=== PATIENT | female | born 1935 | race Caucasian/White ===

== ENCOUNTER 2018-11-24 05:52 | Inpatient (IN) | payer MEDICARE ==
--- NOTE | 2018-11-20 13:39 | HP ---
PREOPERATIVE HISTORY AND PHYSICAL: DATE OF ADMISSION: 11/24/18 PHYSICIAN: Dr. Kimberlyn Lincoln.* (DICTATED BY VESNA SILVA) PROCEDURE: Left total hip arthroplasty. HISTORY OF PRESENT ILLNESS: Ms. Maurer is an 83-year-old female with several years of left hip pain that has become worse over the last 6 months. Her pain is in the groin and can be anything from a mild ache to severe throbbing pain. Her pain has progressed to 7/10 and she has difficulty walking 1 block. She has tried conservative treatments such as antiinflammatories, exercise program, cane, rest, ice, and heat without relief and she is seeking surgical intervention with Dr. Lincoln at this time. PAST MEDICAL HISTORY: Osteoarthritis, hypertension, hypothyroidism. She had a DVT in her right lower extremity in the past. PAST SURGICAL HISTORY: Abdominal aortic aneurysm surgery. She denies anesthetic complications with these procedures. CURRENT MEDICATIONS: 1. 5 mg p.o. daily. 2. Levothyroxine sodium 100 mcg once daily. 3. Furosemide 20 mg once daily. 4. Gabapentin 300 mg 3 capsules 3 times daily. 5. Aspirin 81 mg 1 time daily. She will discontinue this 1 week prior to the surgery. ALLERGIES: IBUPROFEN gives her a rash. FAMILY HISTORY: Positive for diabetes, but no heart disease or cancer. SOCIAL HISTORY: She lives with her , who will take care of her postoperatively. She has smoked for the last 30 years and currently consumes 3 cigarettes a day. She denies recreational drug use or alcohol use. REVIEW OF SYSTEMS: Fourteen systems were reviewed with the patient and they are positive for left hip pain, chronic back pain, fatigue, and easy bleeding, but negative for fevers, chills, chest pain with exertion, shortness of breath with exertion, and all other systems are otherwise negative. PHYSICAL EXAMINATION GENERAL: She is a well-developed, well-nourished female seated in exam chair, in no acute distress with appropriate affect. VITAL SIGNS: Height 64 inches, weight 122 pounds. Pulse 77, blood pressure 108 /78. HEENT: Normocephalic, atraumatic. Hearing and vision are grossly intact with extraocular movements intact. NECK: The trachea is midline and symmetrical. CHEST: Lungs are clear to auscultation. No wheezes, rales, or rhonchi appreciated. CARDIO: Regular rate and rhythm. Normal S1, S2. No murmurs, rubs, or gallops noted. ABDOMEN: Nondistended. Bowel sounds present. MUSCULOSKELETAL: Of the left lower extremity, skin is dry and intact without abrasions or open wounds. She flexes the hip to 70 degrees with severe pain. She has no rotation of the hip due to pain and contracture. She has tenderness to palpation in the groin. No distal edema, varicosities, or hyperreflexia. She has 5/5 strength against resistance in 4 planes in the left ankle. Sensation is intact throughout with a 2+ dorsalis pedis pulse. IMAGING: Radiographs performed previously show severe end-stage osteoarthritis of the left hip. There is [id number] contact and obliteration of the joint space with some subchondral sclerosis and extensive cyst formation around the acetabulum. Osteopenia is noted on these films. ASSESSMENT: Acute on chronic left hip pain and osteoarthritis. PLAN: Left total hip replacement with Dr. Lincoln. The patient's questions were answered and she would like to proceed. Dr. Lincoln reviewed the potential risks and complications at today's visit. The patient will follow up postoperatively and pain medication will be dispensed postoperatively. VESNA SILVA [id number]/[facility] #: [id number] MTDNancy
[~2018-11-24 05:52] MED LIST: Buffered Lidocaine 1% SYRIN* 1 ML/SYRINGE INTRADERM ONE
[2018-11-24] MEDS ORDERED: Famotidine IV* 10 MG/ML 2 ML (20 mg) IV ONE (06:00)
[2018-11-24] MEDS ORDERED: Lactated Ringers 1000 ML Bag* 1,000 ML IV SCH ×2 (06:00→11:00)
[2018-11-24] MEDS ORDERED: Acetaminophen TAB* 325 MG PO ONE (06:00)
[2018-11-24] MEDS ORDERED: Acetaminophen TAB* 325 MG ONE (06:14)
[2018-11-24] MEDS ORDERED: Famotidine IV* 10 MG/ML 2 ML (20 mg) ONE (06:14)
[2018-11-24] MEDS ORDERED: Buffered Lidocaine 1% SYRIN* 1 ML/SYRINGE INTRADERM ONE (06:16)
[2018-11-24] MEDS ORDERED: ceFAZolin 2 GM in NS PREMIX(*) 2 GM/100 ML BAG IVPB ONE (06:16)
[2018-11-24] MEDS ORDERED: Tranexamic Acid 1,000 MG in NS 0.9% 50 ML IV ONE (07:00)
[2018-11-24] MEDS ORDERED: Phenylephrine 10 MG/ML VIAL* 1 ML VIAL ONE ×2 (07:10→13:27)
[2018-11-24] MEDS ORDERED: fentaNYL* 50 MCG/ML 2 ML VIAL (100 MCG VIAL) ONE ×3 (07:10→11:07)
[2018-11-24] MEDS ORDERED: Midazolam* 1 MG/ML 10 ML VIAL (10 MG) ONE (07:10)
[2018-11-24] MEDS ORDERED: Ondansetron INJ* 2 MG/ML VIAL ONE (07:10)
[2018-11-24] MEDS ORDERED: Propofol* 10 MG/ML 20 ML BTL ONE (07:10)
[2018-11-24] MEDS ORDERED: Lidocaine 2% PF * 5 ML VIAL ONE (07:10)
[2018-11-24] MEDS ORDERED: Dexamethasone IV* 4 MG/ML 1 ML (4 MG) ONE (07:10)
[2018-11-24] MEDS ORDERED: KETAMINE HCL* 50 MG/ML 10 ML VIAL ONE (07:11)
[2018-11-24] MEDS ORDERED: Ropivacaine 0.2% * 2 MG/ML VIAL ONE (07:15)
[2018-11-24] MEDS ORDERED: ROPIVACAINE 5 MG/ML 30 ML BTL (0.5%) ONE (07:48)
[2018-11-24] MEDS ORDERED: Cisatracurium* 2 MG/ML MDV 5 ML ONE (08:04)
[2018-11-24] MEDS ORDERED: EPHEDrine (Pressors)* 50 MG/ML VIAL ONE (08:21)
[2018-11-24] MEDS ORDERED: DiMENhydriNATE IV* 50 MG/ML VIAL IV PUSH PRN (09:19)
[2018-11-24] MEDS ORDERED: Levalbuterol 0.63MG/3ML NEB* UNIT OF USE INH PRN (09:19)
[2018-11-24] MEDS ORDERED: Naloxone* 0.4 MG/ML 1 ML VIAL IV PRN (09:19)
[2018-11-24] MEDS ORDERED: Polyethylene Glycol 3350* 17 GM PACKET PO PRN (10:25)
[2018-11-24] MEDS ORDERED: Cyclobenzaprine TAB* 10 MG PO PRN (10:25)
[2018-11-24] MEDS ORDERED: Magnesium Hydroxide LIQ* 30 ML UDC PO PRN (10:25)
[2018-11-24] MEDS ORDERED: Temazepam CAP* 15 MG PO PRN (10:25)
[2018-11-24] MEDS ORDERED: oxyCODONE TAB* 5 MG TAB PO PRN (10:25)
[2018-11-24] MEDS ORDERED: Ondansetron INJ* 2 MG/ML VIAL IV PRN (10:25)
[2018-11-24] MEDS ORDERED: diPHENhydraMINE IV* 50 MG/ML 1 ml VIAL (BENADRYL) IV PRN (10:25)
[2018-11-24] MEDS ORDERED: Morphine INJ* 2 MG/ML 1 ML SYRINGE (TWO MG - NEW SYRINGE VERSION) IV PRN (10:25)
[2018-11-24] MEDS ORDERED: diPHENhydraMINE PO* 25 MG PO PRN (10:25)
[2018-11-24] MEDS ORDERED: Ondansetron ODT TAB* 4 MG PO PRN (10:25)
[2018-11-24] MEDS: fentaNYL* 50 MCG/ML 2 ML VIAL (100 MCG VIAL) IV PRN ×3 (11:11→15:25)
--- NOTE | 2018-11-24 13:16 | OP ---
Operative Report - Blank - Operative Report Date of Operation: 11/24/18 Note: RYNE LOPEZ 1935 Date Of Surgery: 11/24/18 Kimberlyn Lincoln MD Cart Attendant: Morenita MALAGON did help throughout the procedure with preparation of the hip, wound retraction, manipulation of the hip, and wound closure. Anesthesiologist: Mili Jordan MD Anesthesia Type: General Preoperative Diagnosis: Left severe degenerative osteoarthritis of the hip Postoperative Diagnosis: As above Procedure Performed: Left Total Hip Arthroplasty with acetabular bone grafting with femoral head autograft Complications: None Specimen: Femoral head and acetabular reamings sent to pathology. Hardware used: This is uncemented Jaime total hip arthroplasty hardware for the femur a accolade II size 6 with 127 neck angle side femoral component, for the acetabulum a size 54E trident II tritanium cluster hole shell, one 15 mm screw, for the insert a size 36Etrident X3 polyethylene insert, and for the femoral head a size 36-2.5 ceramic biolox V40 femoral head. Brief history/Indication: RYNE LOPEZ was known in clinic and had a history of severe left hip pain. She failed conservative treatment with anti- inflammatories, pain pills, intra-articular injections and physical therapy. She elected to undergo left total hip arthroplasty due to continued pain and decreased quality of life. Radiographs showed severe end stage osteoarthritis of the hip with bone on bone contact. Informed consent was obtained from the patient. She understood the risks of surgery included but were not limited to: bleeding, infection, damage to nearby structures, intraoperative fracture, nerve palsy, failure of the hardware, early loosening, stiffness or loss of motion, dislocation, leg length discrepancy, anesthesia complications, stroke, heart attack, blood clot and . She wished to proceed. Intra-Operative findings: Intraoperatively the patient was noted to have severe loss of cartilage of the acetabulum and femoral head. The patient had significant acetabular subchondral bone cysts which were grafted with autograft bone from the femoral head. Description of the Procedure: RYNE LOPEZ was identified in the preanesthesia unit. Her left hip was marked as the correct operative side. Informed consent was signed and placed in the chart. The patient was taken to the operating room and placed under anesthesia without complication. A correa catheter was placed. The patient was placed on the peg board with all bony prominences well padded. The left lower extremity was prepped and draped in the usual sterile fashion. Preoperative time -out was made to correctly identify the patient, side and site. Appropriate intraoperative antibiotics were given within one hour of incision. A standard posterior incision was made and carried sharply down to the lateral fascia. A new 10 blade was used to make an incision in the fascia in line with the skin incision. A charnley retractor was placed. The piriformis and conjoined tendons were identified and elevated off the posterolateral femur using electrocautery. These were tagged with number 5 Ethibond. Next electrocautery was used to make a posterolateral capsular flap and this was tagged with number 5 Ethibonds. The hip was carefully dislocated. Lesser trochanter to the center of the femoral head was measured at 55 mm. The oscillating saw was used to make the femoral neck cut. The femoral head was carefully removed. The femur was retracted anteriorly and the acetabular retractors were placed. Long-handled knife was used to sharply remove any remaining labrum from the acetabular rim. The acetabulum was sequentially reamed up to a size 54. A bleeding subchondral bone bed was obtained. Any subchondral cysts were cleared with a curette and had bone graft from the femoral head placed to fill them. A trial liner was placed and had excellent fit and stability. A 54E cup with a 15 mm screw was placed and had excellent stability with appropriate anteversion and abduction angle. A size 36E polyethylene liner was impacted into the acetabular shell. The liner was checked for stability and was stable. Next attention was turned to preparation of the femoral canal. A canal finder was used to enter the proximal femur. The femoral canal was sequentially broached up to a size 6 femoral broach trial. A trial neck and 36 - 2.5 trial femoral head was chosen. Lesser trochanter to center of the femoral head measurement was satisfactory. The hip was reduced and taken through a range of motion. The hip was stable in all positions with good soft tissue tension and appropriate leg lengths. The hip was dislocated and all trials were removed. The final implant chosen was a accolade size 6 with 127 neck angle. This stem was impacted into the femoral canal without difficulty. The stem was stable with appropriate anteversion. The femoral head chosen was a 36 - 2.5 ceramic head. The head was impacted onto the femoral neck without difficulty. The final lesser trochanter to center of the femoral head measurement was satisfactory. The hip was reduced and taken through a range of motion. The hip was stable in all positions with good soft tissue tension and appropriate leg lengths. The hip was copiously irrigated with sterile saline. The previously tagged capsule and tendons were repaired to the posterolateral femur through two trochanteric drill holes. The lateral fascia layer was closed using number 1 vicryls. The rest of the incision was closed in a layered fashion using 0 and 2-0 vicryls. The skin was closed using 3-0 monocryl suture and Dermabond. Sterile adaptic, 4x4s and paper tape was used to cover the incision. The patients anesthesia was reversed without difficulty. She was taken to the PACU in stable condition. Intended weight-bearing will be as tolerated with posterior hip precautions.
[2018-11-24] MEDS: Phenylephrine 10 MG/ML VIAL* 50 MG in NS 0.9% 250 ML* 245 ML IV PRN ×2 (13:32→14:16)
[2018-11-24] MEDS ORDERED: Acetaminophen TAB* 325 MG PO SCH (14:00)
[2018-11-24 14:56] LABS: ABS Basophils 0.1 10^3/ul (0-0.2); ABS Lymphocytes 0.5 10^3/ul (1.0-4.8); ABS Monocytes 0.2 10^3/ul (0-0.8); ABS Neutrophils 13.5 10^3/ul (1.5-7.7); Eosinophil % 0.1 %; Hematocrit 27 % (35-47); Hemoglobin 8.8 g/dL (12.0-16.0); Lymphocyte % 3.8 %; Mean Corpuscular HGB Conc 32 g/dL (31-36); Mean Corpuscular Hemoglobin 29 pg (27-31); Mean Corpuscular Volume 89 fL (80-97); Mean Platelet Volume 7.4 fL (7.4-10.4); Platelet Count 148 10^3/uL (150-450); Red Blood Count 3.07 10^6 /uL (3.70-4.87); Red Cell Distribution Width 16 % (10-15); White Blood Count 14.4 10^3/uL (3.5-10.8)
[2018-11-24] MEDS: Gabapentin CAP(*) 100 MG PO SCH ×2 (15:02→22:03)
[2018-11-24 15:12] LABS: BUN/Creatinine Ratio 19.4 (8-20); Calcium 7.3 mg/dL (8.6-10.3); EGFR African American 26.2 (>60); EGFR Non-African American 21.7 (>60)
[2018-11-24 15:14] LABS: Potassium 5.7 mmol/L (3.5-5.0)
[2018-11-24] MEDS: Morphine INJ* 2 MG/ML 1 ML SYRINGE (TWO MG - NEW SYRINGE VERSION) IV PRN ×2 (16:28→22:03)
[2018-11-24] MEDS: ceFAZolin 1 GM ADVAN(*) 1 GM in NS 0.9% 50 ML* 50 ML IVPB SCH (16:37)
[2018-11-24] MEDS: Lactated Ringers 1000 ML Bag* 1,000 ML IV SCH ×2 (16:38→20:56)
--- NOTE | 2018-11-24 16:44 | PN ---
Progress Note - Progress Note Date of Service: 11/24/18 Note: Postop hypotension most likely from autonomic instability, and will correct with volume infusion. No evidence of cardiac ischemia. Full consult dictated.
[2018-11-24] MEDS ORDERED: Phenylephrine 10 MG/ML VIAL* 50 MG in NS 0.9% 250 ML* 245 ML IV PRN (17:00)
--- NOTE | 2018-11-24 17:12 | CONS ---
CRITICAL CARE CONSULT: DATE OF CONSULT: 11/24/18 REASON FOR CONSULT: Postop hypotension. HISTORY OF PRESENT ILLNESS: The patient is an 83-year-old white female, who underwent a total hip replacement under general anesthesia earlier today and postoperatively developed hypotension requiring vasopressor support. There is no chest pain or EKG evidence of acute cardiac ischemia, and no mental status change associated with the hypotension. PAST MEDICAL HISTORY: The patient has a history of hypothyroidism, atrial fibrillation, COPD, and right leg DVT. PAST SURGICAL HISTORY: Includes aortic valve repair, abdominal aortic aneurysm surgery, and duodenal ulcer repair. . OUTPATIENT MEDICATIONS: Include: 1. Flecainide 50 mg daily. 2. Levothyroxine 100 mcg daily. 3. Furosemide 20 mg daily. 4. Gabapentin 300 mg t.i.d. 5. Aspirin 81 mg daily. DRUG ALLERGIES: IBUPROFEN produces a rash. REVIEW OF SYSTEMS: Noncontributory. PHYSICAL EXAM: Revealed a pleasant female, who was awake and answered questions appropriately. Vital Signs: Temp 98.8, heart rate 88 and irregular, respirations 16, blood pressure 104/80, O2 sat 94% on nasal O2. HEENT: Pupils mid position and reactive. No facial asymmetry. Lungs: Clear. Cardiac Exam: 2/6 early systolic murmur heard along the left sternal border without radiation. Abdomen: There is a 7 cm palpable mass just above the umbilicus. Extremities: Warm, not cyanotic, and not edematous. DIAGNOSTIC STUDIES/LAB DATA: Preop labs significant for a potassium of 5.7, creatinine of 2.17, glucose of 180. White count of 14 and hemoglobin of 8.8. EKG postop showed a first-degree AV block, but no acute ST or T-wave changes. No chest x-ray available at this time. IMPRESSION AND PLAN: Postop hypotension, most likely related to autonomic instability (from old age) exacerbated by general anesthesia). Adrenal insufficiency also a consideration in light of the hyperkalemia. No evidence for acute myocardial injury or acute thromboembolism, but patient does have renal insufficiency.. Management will include volume infusion to assist in weaning the vasopressor. Will also check a random cortisol level. CRITICAL CARE TIME: 60 minutes (including time to discuss the case with the orthopedic surgery service). [id number]/[facility] #: [id number] LANE
[2018-11-24] MEDS: oxyCODONE/Acetamin 5/325 MG* TAB PO PRN (17:23)
--- NOTE | 2018-11-24 17:54 | CONS ---
HOSPITAL MEDICINE CONSULTATION REPORT: DATE OF CONSULT: 11/24/18 PROVIDER: Ayesha Farah NP ATTENDING PHYSICIAN: Dr. Kimberlyn Lincoln. CONSULTING PHYSICIAN: Dr. Brad Echeverria * (dictated by Ayesha Farah NP). REASON FOR CONSULT: Co-management of chronic medical conditions. HISTORY OF PRESENT ILLNESS: Ms. Maurer is an 83-year-old female with a past medical history significant for osteoarthritis, hypertension, hypothyroid, history of DVT, COPD, brief episode of atrial fibrillation postsurgical after duodenal ulcer repair, thoracic aneurysm that is 7 cm, who presented to [facility] for an elective left total hip arthroplasty with Dr. Lincoln. Please see dictated H and P from VESNA Owen, for complete details. In brief, the patient had ongoing pain and failed conservative measures, therefore opted for an elective left total hip arthroplasty with Dr. Lincoln. In the immediate postoperative period, the patient is hypotensive in PACU. The patient denies dizziness or lightheadedness. She denies any recent fever, chills, unintended weight loss. Denies any chest pain or edema. No cough, hemoptysis, or shortness of breath. Denies any nausea, vomiting, diarrhea, or abdominal pain. No gross hematuria or dysuria, focal weakness, or sensory loss. Denies any visual complaints, dysphagia, arthralgias, myalgias, rashes, lesions, open sores , psychosis, or anxiety. Due to the patient's chronic medical conditions, [facility] was asked to see and evaluate the patient in consultation. PAST MEDICAL HISTORY: 1. Abdominal aortic aneurysm repair. 2. History of aortic stenosis with aortic valve replacement in 2007. 3. Left shoulder surgery. 4. Cataract repair. 5. Appendectomy. 6. Tonsillectomy. 7. Unknown stent placement in August of [address] Kenney at [facility]. HOME MEDICATIONS: Include: 1. Levothyroxine 100 mcg p.o. daily. 2. Furosemide 20 mg p.o. daily. 3. Gabapentin 100 mg p.o. t.i.d. 4. Flecainide 50 mg p.o. daily. 5. Pantoprazole 40 mg p.o. daily. 6. Colace 100 mg p.o. daily. 7. Aspirin 81 mg p.o. daily, last dose 1 week ago. ALLERGIES: To IBUPROFEN. FAMILY HISTORY: Father with hypertension. No reported history of diabetes or cancer within the family. SOCIAL HISTORY: The patient smokes 3 cigarettes a day. Denies any alcohol or illicit drug use. She is a full code. Surrogate decision maker in the event she is unable to make her own decisions is her significant other. She generally walks with a cane. REVIEW OF SYSTEMS: The patient denies any fever or unintended weight loss. Denies any chest pain or edema. No cough, hemoptysis, or shortness of breath. No nausea, vomiting, diarrhea or abdominal pain, hematuria or dysuria. Denies any focal weakness or sensory loss, visual complaints, dysphagia, arthralgias, myalgias, rashes, lesions, open sores. She does complain of left hip pain. PHYSICAL EXAM: General: At this time, Ms. Maurer is resting in PACU. She is alert and oriented. She is in no acute distress. Vital Signs: Blood pressure 84/51, heart rate is 83, respirations are 20, O2 saturation 95%, temperature 97.2. HEENT: Head is atraumatic, normocephalic. Eyes: EOMs are intact. Sclerae anicteric and not pale. Oral mucosa appeared to be moist. Neck is supple. Lungs are clear to auscultation bilaterally. A few scattered expiratory wheezes. Cardiac: S1, S2. Regular rate and rhythm. No murmurs, rubs, or gallops. Abdomen is soft and nontender. Bowel sounds are present x4. Extremities: Pedal pulses are +1 bilaterally. Left hip dressing is dry and intact. Neurologic: She is awake, alert, oriented x3. Speech is clear. Thought process is intact. There are no gross focal deficits. DIAGNOSTIC STUDIES/LAB DATA: On 11/13/18, WBCs were 7.8, RBCs 4.26, hemoglobin 12.3, hematocrit was 38, platelet count was 179. INR was 0.91. Sodium 142, potassium 4.8, chloride 101, carbon dioxide was 33, anion gap 8, BUN 35, creatinine 1.46, calcium 9.1. ASTs were 14, ALTs were 8, alkaline phosphatase was 90. Urine was yellow, clear, pH was 5.0, specific gravity was 1.009, urine protein was negative, ketones were negative, urine blood was 1+; nitrites, bilirubin, and urobilinogen were all negative; leukocyte esterase was negative; urine wbc's were trace, rbc's were trace, squamous epithelial cells were present , bacteria was 1+. IMPRESSION AND PLAN: Ms. Maurer is an 83-year-old female with a past medical history significant for osteoarthritis, hypertension, hypothyroid, history of deep venous thrombosis, chronic obstructive pulmonary disease, atrial fibrillation, thoracic aortic aneurysm, who presented to [facility] for an elective left total hip arthroplasty with Dr. Lincoln. Due to her chronic medical conditions, Hospital Medicine was asked to consult. Our recommendations are as follows: The patient has had consistent hypotension in PACU with blood pressures in the 70s and 80s. I have consulted Dr. Mak from the rehab trainer team, who will take over the care of this patient as the patient is currently on at Phenylephrine drip 20 mg and will be requiring intensive care unit for aftercare postoperatively. I have ordered a repeat CBC and BMP and further management will be per the rehab trainer team. TIME SPENT: Time spent on this consultation was 60 minutes, greater than half that time was spent at the bedside reviewing events leading thus far to her hospitalization, performing physical exam, and reviewing my plan of care. I have discussed this with my attending, Dr. Brad Echeverria; he is in agreement with my plan. Care has been transferred to the rehab trainer team. Thank you for this consultation. AYESHA FARAH NP [id number]/[facility] #: [id number] LANE
[2018-11-24] MEDS ORDERED: Norepinephrine 16MCG/ML IVPRE* 4,000 MCG/250 ML BAG IV SCH ×2 (18:35→20:20)
[2018-11-24] MEDS ORDERED: NS 0.9% 500 ML* 500 ML IV ONE (18:35)
[2018-11-24] MEDS: traMADol TAB* 50 MG PO PRN (18:51)
[2018-11-24] MEDS ORDERED: Docusate CAP* 100 MG PO SCH (21:00)
[2018-11-24] MEDS ORDERED: Magnesium Hydroxide LIQ* 30 ML UDC PO SCH (21:00)
[2018-11-24 22:01] LABS: BUN/Creatinine Ratio 18.9 (8-20); Calcium 7.1 mg/dL (8.6-10.3); EGFR African American 24.1 (>60)
[2018-11-24 22:03] LABS: Potassium 6.5 mmol/L (3.5-5.0)
[2018-11-24] MEDS ORDERED: Patiromer POWDER* 8.4 GM PAK PO ONE (22:05)
[2018-11-24] MEDS ORDERED: Calcium Gluconate INJ* 1 GM in NS 0.9% 50 ML* 50 ML IVPB ONE (22:30)
[2018-11-25] MEDS: ceFAZolin 1 GM ADVAN(*) 1 GM in NS 0.9% 50 ML* 50 ML IVPB SCH ×2 (00:01→09:03)
[2018-11-25] MEDS: traMADol TAB* 50 MG PO PRN ×2 (00:50→19:57)
[2018-11-25 05:59] LABS: Hematocrit 21 % (35-47); Mean Platelet Volume 7.6 fL (7.4-10.4); Platelet Count 129 10^3/uL (150-450)
[2018-11-25 06:27] LABS: Calcium 7.2 mg/dL (8.6-10.3); EGFR Non-African American 20.7 (>60)
[2018-11-25] MEDS ORDERED: Insulin REGULAR(*) 1 UNITS UNIT IV PUSH ONE ×2 (06:33→23:05)
[2018-11-25] MEDS ORDERED: Dextrose 50% VIAL 50 ml IV ONE ×2 (06:34→23:05)
[2018-11-25] MEDS ORDERED: Calcium Gluconate INJ* 1 GM in NS 0.9% 50 ML* 50 ML IVPB ONE (07:00)
[2018-11-25] MEDS ORDERED: Patiromer POWDER* 8.4 GM PAK PO ONE (07:00)
[2018-11-25] MEDS: Gabapentin CAP(*) 100 MG PO SCH ×3 (08:14→19:57)
[2018-11-25] MEDS: Levothyroxine TAB* 100 MCG TAB PO SCH (08:14)
[2018-11-25] MEDS: Flecainide TAB* 100 MG PO SCH (08:15)
[2018-11-25] MEDS: Apixaban* 2.5 MG TAB PO SCH ×2 (08:19→19:58)
[2018-11-25] MEDS ORDERED: FUROSEMIDE 20 MG PO SCH (09:00)
[2018-11-25] MEDS ORDERED: Vitamin THERAPEUTIC TAB PO SCH (09:00)
--- NOTE | 2018-11-25 09:05 | PN ---
Progress Note - Progress Note Date of Service: 11/25/18 SOAP: Subjective: Pt. reports some mild pain in L hip. She had been hypotensive since surgery, getting prbc this am for acute postop anemia. Objective: Vital Signs: Temp Pulse Resp BP Pulse Ox 99.5 F 86 20 102/40 93 11/25/18 08:00 11/25/18 08:30 11/25/18 08:30 11/25/18 08:30 11/25/18 08:30 Laboratory Results - last 24 hr 11/24/18 11/24/18 11/24/18 14:44 14:44 19:25 WBC 14.4 H RBC 3.07 L Hgb 8.8 L Hct 27 L MCV 89 MCH 29 MCHC 32 RDW 16 H Plt Count 148 L MPV 7.4 Neut % (Auto) 93.7 Lymph % (Auto) 3.8 Meagher % (Auto) 1.7 Eos % (Auto) 0.1 Baso % (Auto) 0.7 Absolute Neuts (auto) 13.5 H Absolute Lymphs (auto) 0.5 L Absolute Monos (auto) 0.2 Absolute Eos (auto) 0.0 Absolute Basos (auto) 0.1 Absolute Nucleated RBC 0.0 Nucleated RBC % 0.0 Sodium 134 L Potassium 5.7 H Chloride 104 Carbon Dioxide 26 Anion Gap 4 BUN 42 H Creatinine 2.17 H Est GFR ( Amer) 26.2 Est GFR (Non-Af Amer) 21.7 BUN/Creatinine Ratio 19.4 Glucose 180 H Lactic Acid 3.0 H* Calcium 7.3 L Magnesium Blood Type Antibody Screen Crossmatch 11/24/18 11/25/18 11/25/18 21:35 05:35 05:35 WBC RBC Hgb 7.0 L Hct 21 L MCV MCH MCHC RDW Plt Count 129 L MPV 7.6 Neut % (Auto) Lymph % (Auto) Meagher % (Auto) Eos % (Auto) Baso % (Auto) Absolute Neuts (auto) Absolute Lymphs (auto) Absolute Monos (auto) Absolute Eos (auto) Absolute Basos (auto) Absolute Nucleated RBC Nucleated RBC % Sodium 132 L 131 L Potassium 6.5 H* 6.0 H Chloride 103 103 Carbon Dioxide 25 26 Anion Gap 4 2 BUN 44 H 43 H Creatinine 2.33 H 2.26 H Est GFR ( Amer) 24.1 25.0 Est GFR (Non-Af Amer) 20.0 20.7 BUN/Creatinine Ratio 18.9 19.0 Glucose 207 H 139 H Lactic Acid Calcium 7.1 L 7.2 L Magnesium 2.0 Blood Type Antibody Screen Crossmatch 11/25/18 11/25/18 05:35 05:35 WBC RBC Hgb Hct MCV MCH MCHC RDW Plt Count MPV Neut % (Auto) Lymph % (Auto) Meagher % (Auto) Eos % (Auto) Baso % (Auto) Absolute Neuts (auto) Absolute Lymphs (auto) Absolute Monos (auto) Absolute Eos (auto) Absolute Basos (auto) Absolute Nucleated RBC Nucleated RBC % Sodium Potassium Chloride Carbon Dioxide Anion Gap BUN Creatinine Est GFR ( Amer) Est GFR (Non-Af Amer) BUN/Creatinine Ratio Glucose Lactic Acid 1.4 Calcium Magnesium Blood Type O Positive Antibody Screen Negative Crossmatch See Detail LLE - distally nvi with +df/pf, full sens lt, 2+ dp pulse. thigh soft and compressible. Assessment: 83 yo POD 1 s/p LTHA Plan: wbat lle with post hip precautions pt/ot - goal today will be oobtc with meals hypotension with pressors now hyperkalemia correcting Lactic acid normalized Appreciate ICU and hospitalist team management.
[2018-11-25] MEDS ORDERED: Cosyntropin* 0.25 MG VIAL IV ONE (10:30)
[2018-11-25] MEDS: oxyCODONE/Acetamin 5/325 MG* TAB PO PRN ×2 (12:04→23:58)
[2018-11-25 13:16] LABS: TSH (Thyroid Stimulating Horm) 0.28 mcIU/mL (0.34-5.60)
[2018-11-25] MEDS: Hydrocortisone INJ* 100 MG VIAL IV SCH ×2 (13:28→19:57)
[2018-11-25] MEDS: Lactated Ringers 1000 ML Bag* 1,000 ML IV SCH ×2 (15:22→23:22)
--- NOTE | 2018-11-25 17:19 | PN ---
Date of Service: 11/25/18 Critical Care Services: Patient had an uneventful evening, but BP still low (although mental status and urine output are both OK). However, the random serum cortisol is very low, indicating probable ADRENAL INSUFFICIENCY, and rapid ACTH test shows normal adrenal response, indicating HYPOTHALAMIC SOURCE of the adrenal insufficiency. Vital Signs: Temp Pulse Resp BP SpO2 FiO2 99.5 F 71 13 89/55 95 Off vasopressors Physical Exam: Gen: Alert, oriented HEENT: No facial asymmetry Lungs: Clear Cardiac: Reg rhythm Abdomen: Not distended Extremities: No cyanosis Fluid Balance (Past 24 Hours): I= O= Net Intake & Output 11/23/18 11/24/18 11/25/18 11/26/18 06:59 06:59 06:59 06:59 Intake Total 6582 2102 Output Total 873 415 Balance 5709 1687 Weight 116 lb 116 lb Intake: IV Fluids 5516 1143 LR 5416 1068 NS 75 NS 100ML, Cefazolin 2G 100 IVPB 373 Calcium gluconate 60 PRBC 313 Medicated IV 241 106 CC - Norepinephrine/ 180 106 Levophed Calcium Gluconate 61 Oral 825 480 Output: العراقي 623 365 Straight Cath 50 Estimated Blood Loss 250 Labs: Laboratory Results - last 24 hr 11/24/18 11/24/18 11/25/18 19:25 21:35 05:35 Hgb 7.0 L Hct 21 L Plt Count 129 L MPV 7.6 Sodium 132 L Potassium 6.5 H* Chloride 103 Carbon Dioxide 25 Anion Gap 4 BUN 44 H Creatinine 2.33 H Est GFR ( Amer) 24.1 Est GFR (Non-Af Amer) 20.0 BUN/Creatinine Ratio 18.9 Glucose 207 H Lactic Acid 3.0 H* Calcium 7.1 L Magnesium 2.0 TSH Cortisol Blood Type Antibody Screen Crossmatch 11/25/18 11/25/18 11/25/18 05:35 05:35 05:35 Hgb Hct Plt Count MPV Sodium 131 L Potassium 6.0 H Chloride 103 Carbon Dioxide 26 Anion Gap 2 BUN 43 H Creatinine 2.26 H Est GFR ( Amer) 25.0 Est GFR (Non-Af Amer) 20.7 BUN/Creatinine Ratio 19.0 Glucose 139 H Lactic Acid 1.4 Calcium 7.2 L Magnesium TSH Cortisol Blood Type O Positive Antibody Screen Negative Crossmatch See Detail 11/25/18 11/25/18 08:59 12:07 Hgb Hct Plt Count MPV Sodium Potassium Chloride Carbon Dioxide Anion Gap BUN Creatinine Est GFR ( Amer) Est GFR (Non-Af Amer) BUN/Creatinine Ratio Glucose Lactic Acid Calcium Magnesium TSH 0.28 L Cortisol 5.89 24.47 Blood Type Antibody Screen Crossmatch Studies: Rapid ACTH Stim test: as mentioned. Nutrition: Oral diet - intake good Impression: Adrenal insufficiency, which surfaced because of a physiological stress, and explains the postop hypotension and the hyponatremia/hyperkalemia. Plan: 1. I have started hydrocortisone at 100 mg IV BID. 2. Will monitor serum sodium and potassium 3. We should also get an endocrine consult for further w/u and management. 4. Remainder of postop management per Dr. Lincoln. Critical Care Time: 50 minutes
[2018-11-25 22:39] LABS: Hematocrit 21 % (35-47); Hemoglobin 6.9 g/dL (12.0-16.0)
[2018-11-25 22:57] LABS: BUN/Creatinine Ratio 17.7 (8-20); Calcium 7.4 mg/dL (8.6-10.3); EGFR African American 24.4 (>60); EGFR Non-African American 20.1 (>60)
[2018-11-25 22:59] LABS: Potassium 6.8 mmol/L (3.5-5.0)
[2018-11-25] MEDS ORDERED: Calcium Gluconate INJ* 2 GM in NS 0.9% 100 ML* 100 ML IV ONE (23:30)
[2018-11-25] MEDS: Patiromer POWDER* 8.4 GM PAK PO SCH (23:34)
[2018-11-26] MEDS: oxyCODONE/Acetamin 5/325 MG* TAB PO PRN ×3 (03:58→11:48)
[2018-11-26] MEDS: Hydrocortisone INJ* 100 MG VIAL IV SCH ×2 (05:01→21:31)
[2018-11-26 05:39] LABS: Hematocrit 26 % (35-47); Hemoglobin 8.9 g/dL (12.0-16.0); Mean Platelet Volume 9.2 fL (7.4-10.4); Platelet Count 118 10^3/uL (150-450)
[2018-11-26 05:45] LABS: BUN/Creatinine Ratio 18.4 (8-20); Blood Urea Nitrogen 37 mg/dL (6-24); CO2 Carbon Dioxide 26 mmol/L (22-32); Calcium 7.8 mg/dL (8.6-10.3); Chloride 105 mmol/L (101-111); EGFR African American 28.6 (>60); EGFR Non-African American 23.7 (>60); Glucose 146 mg/dL (70-100); Sodium 132 mmol/L (135-145)
[2018-11-26 05:58] LABS: Anion Gap 1 mmol/L (2-11)
[2018-11-26 06:39] LABS: BUN/Creatinine Ratio 18.7 (8-20); EGFR African American 28.3 (>60); EGFR Non-African American 23.4 (>60)
[2018-11-26] MEDS: Patiromer POWDER* 8.4 GM PAK PO SCH (08:27)
[2018-11-26] MEDS: Gabapentin CAP(*) 100 MG PO SCH ×3 (08:27→21:30)
[2018-11-26] MEDS: Flecainide TAB* 100 MG PO SCH (08:28)
[2018-11-26] MEDS: Apixaban* 2.5 MG TAB PO SCH ×2 (08:28→21:30)
[2018-11-26] MEDS: Levothyroxine TAB* 100 MCG TAB PO SCH (08:28)
--- NOTE | 2018-11-26 09:53 | PN ---
Date of Service: 11/26/17 Critical Care Services: Doing well this AM. Up in chair and eating breakfast. Has been ambulating with assistance. Off vasopressors and Hb = 8.9 after 3 units PRBC. Is on hydrocortisone for adrenal insufficiency. Vital Signs: Temp Pulse Resp BP SpO2 FiO2 98.6 F 72 15 97/50 99 Physical Exam: Gen: Alert, oriented, comfortable Lungs: Mild end-expiratory wheezing Cardiac: No murmurs Abdomen:Not distended Extremities: Warm. Not cyanotic Fluid Balance (Past 24 Hours): 11/25/18 11/26/18 06:59 06:59 Intake Total 6582 4933 Output Total 873 2065 Balance 5709 2868 Weight 116 lb Intake: IV Fluids 5516 3584 LR 5416 2771 NS 123 NS 100ML, Cefazolin 2G 100 PRBC 690 IVPB 513 Calcium gluconate 200 PRBC 313 Medicated IV 241 106 CC - Norepinephrine/ 180 106 Levophed Calcium Gluconate 61 Oral 825 730 Output: Urine 1350 العراقي 623 665 Straight Cath 50 Estimated Blood Loss 250 Labs: 11/25/18 11/25/18 11/25/18 05:35 08:59 12:07 Hgb Hct Plt Count MPV Sodium Potassium Chloride Carbon Dioxide Anion Gap BUN Creatinine Est GFR ( Amer) Est GFR (Non-Af Amer) BUN/Creatinine Ratio Glucose Calcium TSH 0.28 L Cortisol 5.89 24.47 Blood Type O Positive Antibody Screen Negative Crossmatch See Detail 11/25/18 11/25/18 11/26/18 22:20 22:20 05:14 Hgb 6.9 L 8.9 L Hct 21 L 26 L Plt Count 118 L MPV 9.2 Sodium 134 L Potassium 6.8 H* Chloride 104 Carbon Dioxide 28 Anion Gap 2 BUN 41 H Creatinine 2.31 H Est GFR ( Amer) 24.4 Est GFR (Non-Af Amer) 20.1 BUN/Creatinine Ratio 17.7 Glucose 164 H Calcium 7.4 L TSH Cortisol Blood Type Antibody Screen Crossmatch 11/26/18 11/26/18 05:14 06:10 Hgb Hct Plt Count MPV Sodium 132 L 133 L Potassium TNP 6.0 H Chloride 105 105 Carbon Dioxide 26 26 Anion Gap 1 L 2 BUN 37 H 38 H Creatinine 2.01 H 2.03 H Est GFR ( Amer) 28.6 28.3 Est GFR (Non-Af Amer) 23.7 23.4 BUN/Creatinine Ratio 18.4 18.7 Glucose 146 H 143 H Calcium 7.8 L 8.0 L TSH Cortisol Blood Type Antibody Screen Crossmatch Studies: None today Nutrition: Oral diet - intake good Impression: 1. Hypotension has resolved after blood and hydrocortisone. 2. Adrenal insufficiency - new diagnosis - seems to be from pituitary or hypothalamus (i.e., normal response to cortrosyn). 2. Hyperkalemia - may be from renal or adrenal insufficiency. Blood transfusions may have exacerbated it. Plan: 1. Transfer out of ICU 2. Consult endocrine (Dr. Lantigua) for further evaluation of adrenal insufficiency. 3. Closely monitor potassium 4. Ortho rehab per Dr Lincoln Critical Care Time:
[2018-11-26] MEDS ORDERED: Albuterol HFA INHALER* 8 gm MDI INH PRN (10:03)
[2018-11-26] MEDS ORDERED: Bisacodyl SUPP* 10 MG SUPP PR PRN (10:25)
--- NOTE | 2018-11-26 10:50 | PN ---
Progress Note - Progress Note Date of Service: 11/26/18 SOAP: Subjective: POD #2 Left MARI. Doing better. Pain controlled. In ICU for hypotension, dx with adrenal insufficiency and improving with hydrocortisone. Denies CP/SOB, f/c, n/ v. Objective: Vital Signs: Temp Pulse Resp BP Pulse Ox 98.6 F 69 16 112/55 98 11/26/18 08:00 11/26/18 10:00 11/26/18 10:00 11/26/18 10:00 11/26/18 10:00 Gen: A&Ox3, NAD at rest sitting in chair Left hip: Incision C/D/I, mild ecchymosis surrounding incision, no erythema. Thigh soft, NT. +f/e at knee, ankle and MTPs. Sensation intact, DP 2+ Labs: Laboratory Results - last 24 hr 11/25/18 11/25/18 11/25/18 05:35 12:07 22:20 Hgb Hct Plt Count MPV Sodium 134 L Potassium 6.8 H* Chloride 104 Carbon Dioxide 28 Anion Gap 2 BUN 41 H Creatinine 2.31 H Est GFR ( Amer) 24.4 Est GFR (Non-Af Amer) 20.1 BUN/Creatinine Ratio 17.7 Glucose 164 H Calcium 7.4 L TSH 0.28 L Cortisol 24.47 Blood Type O Positive Antibody Screen Negative Crossmatch See Detail 11/25/18 11/26/18 11/26/18 22:20 05:14 05:14 Hgb 6.9 L 8.9 L Hct 21 L 26 L Plt Count 118 L MPV 9.2 Sodium 132 L Potassium TNP Chloride 105 Carbon Dioxide 26 Anion Gap 1 L BUN 37 H Creatinine 2.01 H Est GFR ( Amer) 28.6 Est GFR (Non-Af Amer) 23.7 BUN/Creatinine Ratio 18.4 Glucose 146 H Calcium 7.8 L TSH Cortisol Blood Type Antibody Screen Crossmatch 11/26/18 06:10 Hgb Hct Plt Count MPV Sodium 133 L Potassium 6.0 H Chloride 105 Carbon Dioxide 26 Anion Gap 2 BUN 38 H Creatinine 2.03 H Est GFR ( Amer) 28.3 Est GFR (Non-Af Amer) 23.4 BUN/Creatinine Ratio 18.7 Glucose 143 H Calcium 8.0 L TSH Cortisol Blood Type Antibody Screen Crossmatch Assessment: POD #2 Left MARI Plan: Pt to be transferred to [facility] later today PT/OT with posterior hip precautions Eliquis for DVT ppx
[2018-11-26 16:31] LABS: BUN/Creatinine Ratio 19.5 (8-20); Calcium 8.6 mg/dL (8.6-10.3); EGFR African American 29.6 (>60); EGFR Non-African American 24.5 (>60)
[2018-11-26 16:34] LABS: Potassium 6.4 mmol/L (3.5-5.0)
[2018-11-26] MEDS ORDERED: Insulin REGULAR(*) 1 UNITS UNIT IV PUSH ONE (16:48)
[2018-11-26] MEDS ORDERED: Albuterol 2.5 MG/3 ML NEB.SOL* (0.083%) INH ONE (16:49)
[2018-11-26] MEDS ORDERED: Patiromer POWDER* 8.4 GM PAK PO ONE (17:00)
[2018-11-26] MEDS ORDERED: Dextrose 50% VIAL 50 ml IV ONE (17:00)
[2018-11-27 05:53] LABS: Hematocrit 25 % (35-47); Hemoglobin 8.5 g/dL (12.0-16.0); Platelet Count 124 10^3/uL (150-450)
[2018-11-27 06:04] LABS: BUN/Creatinine Ratio 19.2 (8-20); Calcium 8.4 mg/dL (8.6-10.3); EGFR African American 29.1 (>60); EGFR Non-African American 24.1 (>60)
[2018-11-27 06:06] LABS: Potassium 5.7 mmol/L (3.5-5.0)
--- NOTE | 2018-11-27 08:11 | PN ---
Subjective Date of Service: 11/27/18 Interval History: HOSPITALIST PROGRESS NOTE Patient seen and examined at bedside. Care reviewed and d/w Teresa Mancilla RN. She feel well today. Denies N/V. Tolerating diet well, pain is controlled. Family History: Unchanged from Admission Social History: Unchanged from Admission Past Medical History: Unchanged from Admission Objective Active Medications: Albuterol (Ventolin Hfa Inhaler*) 2 puff INH Q4H PRN PRN Reason: SOB/WHEEZING Apixaban (Eliquis*) 2.5 mg PO BID [facility] Last Admin: 11/26/18 21:30 Dose: 2.5 mg Flecainide Acetate (Tambocor Tab*) 50 mg PO DAILY [facility] Last Admin: 11/26/18 08:28 Dose: 50 mg Gabapentin (Neurontin Cap(*)) 100 mg PO TID [facility] Last Admin: 11/26/18 21:30 Dose: 100 mg Hydrocortisone Sodium Succinate (Solu-Cortef*) 100 mg IV BID [facility] Last Admin: 11/26/18 21:31 Dose: 100 mg Levothyroxine Sodium (Synthroid Tab*) 100 mcg PO QAM [facility] Last Admin: 11/26/18 08:28 Dose: 100 mcg Morphine Sulfate (Morphine Inj (Syringe))*) 1 mg IV Q4H PRN PRN Reason: Pain - Unrelieved Last Admin: 11/24/18 22:03 Dose: 1 mg Oxycodone/Acetaminophen (Percocet 5/325 Tab*) 1 tab PO Q4H PRN PRN Reason: PAIN - MODERATE Last Admin: 11/26/18 08:28 Dose: 1 tab Oxycodone/Acetaminophen (Percocet 5/325 Tab*) 2 tab PO Q4H PRN PRN Reason: PAIN - SEVERE Last Admin: 11/26/18 11:48 Dose: 2 tab Patiromer (Veltassa Powder*) 8.4 gm PO DAILY [facility] Last Admin: 11/26/18 08:27 Dose: 8.4 gm Tramadol HCl (Ultram*) 50 mg PO Q6H PRN PRN Reason: PAIN - MODERATE Last Admin: 11/25/18 19:57 Dose: 50 mg Vital Signs - 8 hr 11/27/18 11/27/18 11/27/18 00:48 04:00 07:33 Temperature 97.4 F 97.2 F 97.5 F Pulse Rate 73 71 72 Respiratory 16 17 16 Rate Blood Pressure 104/51 107/56 101/50 (mmHg) O2 Sat by Pulse 100 99 100 Oximetry Oxygen Devices in Use Now: Nasal Cannula Appearance: Elderly lady sitting up in bed in NAD. Eyes: No Scleral Icterus Ears/Nose/Mouth/Throat: Mucous Membranes Moist Neck: Trachea Midline Respiratory: Symmetrical Chest Expansion and Respiratory Effort, Clear to Auscultation Cardiovascular: RRR - Normal S1 and S2 Abdominal: NL Sounds; No Tenderness; No Distention Extremities: - - CDI left hip, sensation intact, good capillary refill Neurological: Alert and Oriented x 3, NL Muscle Strength and Tone Result Diagrams: 11/27/18 05:13 11/27/18 05:13 Microbiology and Other Data: Microbiology 11/24/18 17:05 Nasal Screen MRSA (PCR) - Final Nasal Mrsa Not Detected Assess/Plan/Problems-Billing Assessment: Mrs Maurer is an 83yo F with PMH of hypothyroidism, HTN, Afib, COPD, RLE DVT, AAA, Aortic thoracic aneurysm and s/p AVR, s/p duodenal ulcer repair, who presented to [facility] for elective left MARI; Hospitalist service consulted for post op hypotension. - Patient Problems (1) Hypotension Comment: - Patient underwent MARI under general anesthesia on 11/24/18 and required vasopressor support and transfer to ICU; initially on Neosenephrine then Levophed. - 11/25/18 08:59 AM cortisol was low at 5.89; repeat at 11/25/18 12:07 PM 24.47 (after Cosyntropin). 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 - Endocrinology consult requested with Dr Lantigua. - Continue Hydrocortisone. (2) Acute blood loss anemia Comment: - Blood loss also playing a role at hypotension. - S/p 3 PRBC. - H/H stable around 8.5/25. (3) Hyperkalemia Comment: - Change diet to renal diet and continue Patiromer. - Monitor potassium. (4) Atrial fibrillation Comment: - In NSR - continue Flecainide. (5) DVT prophylaxis Comment: - Apixaban. (6) Full code status Status and Disposition: Inpatient.
[2018-11-27] MEDS: oxyCODONE/Acetamin 5/325 MG* TAB PO PRN ×2 (08:57→23:09)
[2018-11-27] MEDS: Levothyroxine TAB* 100 MCG TAB PO SCH (08:57)
[2018-11-27] MEDS: Gabapentin CAP(*) 100 MG PO SCH ×3 (08:57→23:10)
[2018-11-27] MEDS: Hydrocortisone INJ* 100 MG VIAL IV SCH ×2 (08:58→23:10)
[2018-11-27] MEDS: Apixaban* 2.5 MG TAB PO SCH ×2 (08:58→23:09)
[2018-11-27] MEDS: Flecainide TAB* 100 MG PO SCH (09:51)
[2018-11-27] MEDS: Patiromer POWDER* 8.4 GM PAK PO SCH (09:52)
[2018-11-27] MEDS ORDERED: Bisacodyl SUPP* 10 MG SUPP PR PRN (10:30)
[2018-11-27] MEDS: Magnesium Hydroxide LIQ* 30 ML UDC PO SCH ×2 (11:18→23:09)
[2018-11-27] MEDS: Docusate CAP* 100 MG PO SCH ×2 (11:18→23:10)
--- NOTE | 2018-11-27 14:59 | PN ---
Progress Note - Progress Note Date of Service: 11/27/18 SOAP: Subjective: []Pt seen and examined OOB in chair. She is feeling well without complaints. Denies CP, SOB, dizziness, nausea. She remains on O2, Objective: []Gen: Appears well, NAD LLE: Dressing changed, incision CDI, thigh soft, DF/PF intact, DP2+, sensation intact to light touch distally Calves supple and nontender without erythema, edema or palpable cords Assessment: []POD #3 Left MARI Adrenal insufficiency Plan: On [facility] WBAT PT/OT with posterior hip precautions Eliquis for DVT ppx Remains on IV hydrocortisone Vital Signs Temp 97.8 F 11/27/18 11:08 Pulse 81 11/27/18 11:08 Resp 20 11/27/18 14:27 BP 131/59 11/27/18 11:08 Pulse Ox 93 11/27/18 14:45 Intake & Output 11/26/18 11/27/18 11/27/18 18:59 06:59 18:59 Intake Total 720 780 740 Output Total 400 350 300 Balance 320 430 440 Intake: Oral 720 780 740 Output: Urine 400 350 300 Laboratory Last Values WBC 14.4 10^3/uL (3.5-10.8) H 11/24/18 14:44 RBC 3.07 10^6 /uL (3.70-4.87) L 11/24/18 14:44 Hgb 8.5 g/dL (12.0-16.0) L 11/27/18 05:13 Hct 25 % (35-47) L 11/27/18 05:13 MCV 89 fL (80-97) 11/24/18 14:44 MCH 29 pg (27-31) 11/24/18 14:44 MCHC 32 g/dL (31-36) 11/24/18 14:44 RDW 16 % (10-15) H 11/24/18 14:44 Plt Count 124 10^3/uL (150-450) L 11/27/18 05:13 MPV 8.0 fL (7.4-10.4) 11/27/18 05:13 Neut % (Auto) 93.7 % 11/24/18 14:44 Lymph % (Auto) 3.8 % 11/24/18 14:44 [place] % (Auto) 1.7 % 11/24/18 14:44 Eos % (Auto) 0.1 % 11/24/18 14:44 Baso % (Auto) 0.7 % 11/24/18 14:44 Absolute Neuts (auto) 13.5 10^3/ul (1.5-7.7) H 11/24/18 14:44 Absolute Lymphs (auto) 0.5 10^3/ul (1.0-4.8) L 11/24/18 14:44 Absolute Monos (auto) 0.2 10^3/ul (0-0.8) 11/24/18 14:44 Absolute Eos (auto) 0.0 10^3/ul (0-0.6) 11/24/18 14:44 Absolute Basos (auto) 0.1 10^3/ul (0-0.2) 11/24/18 14:44 Absolute Nucleated RBC 0.0 10^3/ul 11/24/18 14:44 Nucleated RBC % 0.0 11/24/18 14:44 Sodium 136 mmol/L (135-145) 11/27/18 05:13 Potassium 5.7 mmol/L (3.5-5.0) H 11/27/18 05:13 Chloride 106 mmol/L (101-111) 11/27/18 05:13 Carbon Dioxide 28 mmol/L (22-32) 11/27/18 05:13 Anion Gap 2 mmol/L (2-11) 11/27/18 05:13 BUN 38 mg/dL (6-24) H 11/27/18 05:13 Creatinine 1.98 mg/dL (0.51-0.95) H 11/27/18 05:13 Est GFR ( Amer) 29.1 (>60) 11/27/18 05:13 Est GFR (Non-Af Amer) 24.1 (>60) 11/27/18 05:13 BUN/Creatinine Ratio 19.2 (8-20) 11/27/18 05:13 Glucose 136 mg/dL (70-100) H 11/27/18 05:13 Lactic Acid 1.4 mmol/L (0.5-2.0) 11/25/18 05:35 Calcium 8.4 mg/dL (8.6-10.3) L 11/27/18 05:13 Magnesium 2.0 mg/dL (1.9-2.7) 11/24/18 21:35 TSH 0.28 mcIU/mL (0.34-5.60) L 11/25/18 12:07 Cortisol 24.47 mcg/dL 11/25/18 12:07 Blood Type O Positive 11/25/18 05:35 Antibody Screen Negative 11/25/18 05:35 Crossmatch See Detail 11/25/18 05:35
[2018-11-27 16:20] LABS: Calcium 8.5 mg/dL (8.6-10.3); EGFR African American 31.3 (>60); EGFR Non-African American 25.9 (>60)
[2018-11-27 16:30] LABS: Potassium 5.9 mmol/L (3.5-5.0)
[2018-11-27] MEDS ORDERED: Patiromer POWDER* 8.4 GM PAK PO ONE (18:41)
[2018-11-27] MEDS: Senna TAB 8.6 mg* TAB PO SCH (23:09)
[2018-11-28 06:28] LABS: Hematocrit 25 % (35-47); Hemoglobin 8.2 g/dL (12.0-16.0); Mean Platelet Volume 7.6 fL (7.4-10.4); Platelet Count 173 10^3/uL (150-450)
[2018-11-28 06:47] LABS: Calcium 8.4 mg/dL (8.6-10.3); EGFR African American 40.1 (>60); EGFR Non-African American 33.2 (>60); Potassium 5.4 mmol/L (3.5-5.0)
--- NOTE | 2018-11-28 07:52 | PN ---
Subjective Date of Service: 11/28/18 Interval History: HOSPITALIST PROGRESS NOTE Patient seen and examined at bedside. Care reviewed and d/w Capri Zapata RN. She feels well today. Denies CP, palpitations, dyspnea. Family History: Unchanged from Admission Social History: Unchanged from Admission Past Medical History: Unchanged from Admission Objective Active Medications: Albuterol (Ventolin Hfa Inhaler*) 2 puff INH Q4H PRN PRN Reason: SOB/WHEEZING Apixaban (Eliquis*) 2.5 mg PO BID [facility] Last Admin: 11/27/18 23:09 Dose: 2.5 mg Bisacodyl (Dulcolax Supp*) 10 mg [place] DAILY PRN PRN Reason: CONSTIPATION Docusate Sodium (Colace Cap*) 100 mg PO BID [facility] Last Admin: 11/27/18 23:10 Dose: 100 mg Flecainide Acetate (Tambocor Tab*) 50 mg PO DAILY [facility] Last Admin: 11/27/18 09:51 Dose: 50 mg Gabapentin (Neurontin Cap(*)) 100 mg PO TID [facility] Last Admin: 11/27/18 23:10 Dose: 100 mg Hydrocortisone Sodium Succinate (Solu-Cortef*) 100 mg IV BID [facility] Last Admin: 11/27/18 23:10 Dose: 100 mg Lactulose (Lactulose*) 30 ml PO DAILY PRN PRN Reason: CONSTIPATION Levothyroxine Sodium (Synthroid Tab*) 100 mcg PO QAM [facility] Last Admin: 11/27/18 08:57 Dose: 100 mcg Magnesium Hydroxide (Milk Of Magnesia Liq*) 30 ml PO BID [facility] Last Admin: 11/27/18 23:09 Dose: 30 ml Oxycodone/Acetaminophen (Percocet 5/325 Tab*) 1 tab PO Q4H PRN PRN Reason: PAIN - MODERATE Last Admin: 11/27/18 23:09 Dose: 1 tab Oxycodone/Acetaminophen (Percocet 5/325 Tab*) 2 tab PO Q4H PRN PRN Reason: PAIN - SEVERE Last Admin: 11/26/18 11:48 Dose: 2 tab Patiromer (Veltassa Powder*) 8.4 gm PO DAILY [facility] Last Admin: 11/27/18 09:52 Dose: 8.4 gm Senna (Senokot 8.6 Mg Tab*) 1 tab PO BEDTIME [facility] Last Admin: 11/27/18 23:09 Dose: 1 tab Tramadol HCl (Ultram*) 50 mg PO Q6H PRN PRN Reason: PAIN - MODERATE Last Admin: 11/25/18 19:57 Dose: 50 mg Vital Signs - 8 hr 11/28/18 11/28/18 11/28/18 03:45 06:10 07:33 Temperature 97.5 F 98.6 F Pulse Rate 72 77 Respiratory 16 18 16 Rate Blood Pressure 115/54 106/54 (mmHg) O2 Sat by Pulse 100 94 Oximetry Oxygen Devices in Use Now: Nasal Cannula - 2 liters Appearance: Pleasant elderly lady sitting up in a recliner in NAD. Eyes: No Scleral Icterus Ears/Nose/Mouth/Throat: Mucous Membranes Moist Neck: Trachea Midline Respiratory: Symmetrical Chest Expansion and Respiratory Effort, Clear to Auscultation Cardiovascular: RRR - Normal S1 and S2 Abdominal: NL Sounds; No Tenderness; No Distention Extremities: - - Left hip CDI, sensation intact, good capillary refill Neurological: Alert and Oriented x 3, NL Muscle Strength and Tone Result Diagrams: 11/28/18 05:39 11/28/18 14:58 Assess/Plan/Problems-Billing Assessment: Mrs Maurer is an 83yo F with PMH of hypothyroidism, HTN, Afib, COPD, RLE DVT, AAA, Aortic thoracic aneurysm and s/p AVR, s/p duodenal ulcer repair, who presented to [facility] for elective left MARI; Hospitalist service consulted for post op hypotension. - Patient Problems (1) Acute hypoxemic respiratory failure Comment: - Patient has been a smoker for many years, but no formal diagnosis of COPD. - Now requiring supplemental O2 with no significant dyspnea. - Suspect this is likely undiagnosed COPD, but with recent surgery check V/Q scan that was intermediate probability for PE - check LE doppler. (2) Hypotension Comment: - Patient underwent MARI under general anesthesia on 11/24/18 and required vasopressor support and transfer to ICU; initially on Neosenephrine then Levophed. - 11/25/18 08:59 AM cortisol was low at 5.89; repeat at 11/25/18 12:07 PM 24.47 (after Cosyntropin). 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 - Endocrinology consultation appreciated - Dr Lantigua thinks adrenal insufficiency is unlikely. Will d/c hydrocortisone and monitor. No further hypotension and orthostatic VS are negative. (3) Acute blood loss anemia Comment: - Blood loss also playing a role at hypotension. - S/p 3 PRBC. - H/H stable around 8.5/25. (4) Hyperkalemia Comment: - Potassium trending down, but still elevated. - Nephrology consultation requested. (5) Atrial fibrillation Comment: - In NSR - continue Flecainide. (6) DVT prophylaxis Comment: - Apixaban. (7) Full code status Status and Disposition: Inpatient.
--- NOTE | 2018-11-28 08:35 | CONSULT ---
Consult Consult: [facility] Inpatient Consult Note Date of Consult: 11/28/18 Reason for Consult: hypotension Reason for Admission: LTHA ASSESSMENT: 83 yo F with recent LTHA complicated by post-operative hypotension requiring vasopressor support, now evaluated for adrenal insufficiency. Her ACTH stimulation test was normal, which excludes the diagnoses of primary AI and chronic secondary AI. Acute secondary/tertiary AI -- pituitary apoplexy -- is unlikely in this case. She has had a good response to hydrocortisone supplementation, but long-term need for steroid replacement is unlikely. PLAN: - d/c hydrocortisone - check orthostatic VS daily while inpatient - patient may be discharged without hydrocortisone if not orthostatic - call [phone] with questions SUBJECTIVE: History of Present Illness: 83 yo F with history of HTN and other medical conditions below, now admitted for elective hip replacement. She was not to be significantly hypotensive in the immediate post-op period and was admitted to ICU for 5 days for pressor support. Cortisol >24 post-ACTH. She is now on the floor and feeling well. Denies orthostasis. She denies recent PO, IA or systemic steroid use prior to admission. She has been on anti-hypertensive agents in the recent past, but was recently started on flecainide and stopped these. Past Medical History: - hypothyroidism - HTN - AF - TAA - s/p AVR - PUD - DVT COPD Medications Prior to Admission: Aspirin 81 mg PO QAM 06/02/13 [History Confirmed 11/24/18] Furosemide TAB* 20 mg PO QAM 06/02/13 [History Confirmed 11/24/18] Levothyroxine TAB* 100 mcg PO QAM 06/02/13 [History Confirmed 11/24/18] Cholecalciferol (Vitamin D3) [Vitamin D3] 2,000 unit PO QAM 11/13/18 [History Confirmed 11/24/18] Docusate Sodium [Stool Softener] 100 mg PO DAILY PRN 11/13/18 [History Confirmed 11/24/18] Flecainide TAB(NF) 50 mg PO QAM 11/13/18 [History Confirmed 11/24/18] Gabapentin [Neurontin] 100 mg PO TID 11/13/18 [History Confirmed 11/24/18] Inpatient Medications: Albuterol (Ventolin Hfa Inhaler*) 2 puff INH Q4H PRN PRN Reason: SOB/WHEEZING Apixaban (Eliquis*) 2.5 mg PO BID [facility] Last Admin: 11/28/18 09:40 Dose: 2.5 mg Bisacodyl (Dulcolax Supp*) 10 mg UT DAILY PRN PRN Reason: CONSTIPATION Last Admin: 11/28/18 09:40 Dose: 10 mg Docusate Sodium (Colace Cap*) 100 mg PO BID [facility] Last Admin: 11/28/18 09:39 Dose: 100 mg Flecainide Acetate (Tambocor Tab*) 50 mg PO DAILY [facility] Last Admin: 11/28/18 09:38 Dose: 50 mg Gabapentin (Neurontin Cap(*)) 100 mg PO TID [facility] Last Admin: 11/28/18 13:48 Dose: 100 mg Lactulose (Lactulose*) 30 ml PO DAILY PRN PRN Reason: CONSTIPATION Levothyroxine Sodium (Synthroid Tab*) 100 mcg PO QAM [facility] Last Admin: 11/28/18 09:39 Dose: 100 mcg Magnesium Hydroxide (Milk Of Magnliset Liq*) 30 ml PO BID [facility] Last Admin: 11/28/18 09:12 Dose: Not Given Oxycodone/Acetaminophen (Percocet 5/325 Tab*) 1 tab PO Q4H PRN PRN Reason: PAIN - MODERATE Last Admin: 11/28/18 13:48 Dose: 1 tab Oxycodone/Acetaminophen (Percocet 5/325 Tab*) 2 tab PO Q4H PRN PRN Reason: PAIN - SEVERE Last Admin: 11/26/18 11:48 Dose: 2 tab Patiromer (Veltassa Powder*) 8.4 gm PO DAILY [facility] Last Admin: 11/28/18 09:38 Dose: 8.4 gm Senna (Senokot 8.6 Mg Tab*) 1 tab PO BEDTIME [facility] Last Admin: 11/27/18 23:09 Dose: 1 tab Tramadol HCl (Ultram*) 50 mg PO Q6H PRN PRN Reason: PAIN - MODERATE Last Admin: 11/25/18 19:57 Dose: 50 mg Allergies/Intolerances: NSAIDs Social History: Active smoking, no EtOH. Lives with partner. Family History: HTN Review of Systems: 10 system review is otherwise normal. OBJECTIVE: Temp Pulse Resp BP Pulse Ox 98 F 76 16 107/58 100 11/28/18 12:00 11/28/18 12:00 11/28/18 13:48 11/28/18 12:00 11/28/18 12:00 General: alert, pleasant, oriented, no distress ENT: neck supple, no thyromegaly, no bruit is heard Chest: CTAB, no wheezing or crackles CV: RRR, no murmur Abdomen: soft, non-tender Extremities: no edema, distal pulses intact Skin: warm, dry, no rash Neuro: grossly intact motor/sensory in extremities, weight-bearing Psych: restricted affect, pleasant WBC 14.4 10^3/uL (3.5-10.8) H 11/24/18 14:44 RBC 3.07 10^6 /uL (3.70-4.87) L 11/24/18 14:44 Hgb 8.2 g/dL (12.0-16.0) L 11/28/18 05:39 Hct 25 % (35-47) L 11/28/18 05:39 MCV 89 fL (80-97) 11/24/18 14:44 MCH 29 pg (27-31) 11/24/18 14:44 MCHC 32 g/dL (31-36) 11/24/18 14:44 RDW 16 % (10-15) H 11/24/18 14:44 Plt Count 173 10^3/uL (150-450) 11/28/18 05:39 MPV 7.6 fL (7.4-10.4) 11/28/18 05:39 Neut % (Auto) 93.7 % 11/24/18 14:44 Lymph % (Auto) 3.8 % 11/24/18 14:44 [place] % (Auto) 1.7 % 11/24/18 14:44 Eos % (Auto) 0.1 % 11/24/18 14:44 Baso % (Auto) 0.7 % 11/24/18 14:44 Absolute Neuts (auto) 13.5 10^3/ul (1.5-7.7) H 11/24/18 14:44 Absolute Lymphs (auto) 0.5 10^3/ul (1.0-4.8) L 11/24/18 14:44 Absolute Monos (auto) 0.2 10^3/ul (0-0.8) 11/24/18 14:44 Absolute Eos (auto) 0.0 10^3/ul (0-0.6) 11/24/18 14:44 Absolute Basos (auto) 0.1 10^3/ul (0-0.2) 11/24/18 14:44 Absolute Nucleated RBC 0.0 10^3/ul 11/24/18 14:44 Nucleated RBC % 0.0 11/24/18 14:44 Sodium 138 mmol/L (135-145) 11/28/18 05:39 Potassium 5.4 mmol/L (3.5-5.0) H 11/28/18 05:39 Chloride 106 mmol/L (101-111) 11/28/18 05:39 Carbon Dioxide 29 mmol/L (22-32) 11/28/18 05:39 Anion Gap 3 mmol/L (2-11) 11/28/18 05:39 BUN 36 mg/dL (6-24) H 11/28/18 05:39 Creatinine 1.50 mg/dL (0.51-0.95) H 11/28/18 05:39 Est GFR ( Amer) 40.1 (>60) 11/28/18 05:39 Est GFR (Non-Af Amer) 33.2 (>60) 11/28/18 05:39 BUN/Creatinine Ratio 24.0 (8-20) H 11/28/18 05:39 Glucose 114 mg/dL (70-100) H 11/28/18 05:39 Lactic Acid 1.4 mmol/L (0.5-2.0) 11/25/18 05:35 Calcium 8.4 mg/dL (8.6-10.3) L 11/28/18 05:39 Magnesium 2.0 mg/dL (1.9-2.7) 11/24/18 21:35 TSH 0.28 mcIU/mL (0.34-5.60) L 11/25/18 12:07 Cortisol 24.47 mcg/dL 11/25/18 12:07 Blood Type O Positive 11/25/18 05:35 Antibody Screen Negative 11/25/18 05:35 Crossmatch See Detail 11/25/18 05:35
[2018-11-28] MEDS: Magnesium Hydroxide LIQ* 30 ML UDC PO SCH ×2 (09:12→21:20)
[2018-11-28] MEDS: Patiromer POWDER* 8.4 GM PAK PO SCH (09:38)
[2018-11-28] MEDS: Flecainide TAB* 100 MG PO SCH (09:38)
[2018-11-28] MEDS: oxyCODONE/Acetamin 5/325 MG* TAB PO PRN ×3 (09:39→18:19)
[2018-11-28] MEDS: Levothyroxine TAB* 100 MCG TAB PO SCH (09:39)
[2018-11-28] MEDS: Docusate CAP* 100 MG PO SCH ×2 (09:39→21:21)
[2018-11-28] MEDS: Gabapentin CAP(*) 100 MG PO SCH ×3 (09:39→21:20)
[2018-11-28] MEDS: Apixaban* 2.5 MG TAB PO SCH ×2 (09:40→21:20)
[2018-11-28] MEDS: Hydrocortisone INJ* 100 MG VIAL IV SCH (09:41)
--- NOTE | 2018-11-28 09:53 | CONSULT ---
Consult Consult: Consult requested for Hyper-K Requested by Dr. Sanches Consult done by Dr. Gutierrez, [facility] Nephrology 83 yo F with recent Lt MARI s/p post-operative hypotension requiring vasopressor support, and ICU stay. s/p KALYN on CKD. Peak sCr 43/2.26-11/25, improved consistently, today 36/1.50. K peaked 6.8-11/25 , required patiromer BID and today it's 5.4. Questions were raised about etiology of Hyperkalemia. Of note, pre-op patient was on Lasix, K random mid 4s, and now with Lasix being held, K is high. She was on ACEI that was stopped back in August. Denied history of hyperkalemia, salt substitutes or NSAIDs. Of note, Normal ACTH stimulation test, off hydrocortisone Past Medical History: CKD sCr 1.4-1.5 AFib HTN Hyperkalemia HomeMeds: Medication Instructions Recorded Confirmed Type Aspirin 81 mg PO QAM 06/02/13 11/24/18 History Furosemide TAB* 20 mg PO QAM 06/02/13 11/24/18 History Levothyroxine TAB* 100 mcg PO QAM 06/02/13 11/24/18 History Cholecalciferol (Vitamin D3) 2,000 unit PO QAM 11/13/18 11/24/18 History [Vitamin D3] Docusate Sodium [Stool Softener] 100 mg PO DAILY PRN 11/13/18 11/24/18 History Flecainide TAB(NF) 50 mg PO QAM 11/13/18 11/24/18 History Gabapentin [Neurontin] 100 mg PO TID 11/13/18 11/24/18 History HOSPITAL MEDICATIONS: Albuterol (Ventolin Hfa Inhaler*) 2 puff INH Q4H PRN PRN Reason: SOB/WHEEZING Apixaban (Eliquis*) 2.5 mg PO BID [facility] Last Admin: 11/28/18 09:40 Dose: 2.5 mg Bisacodyl (Dulcolax Supp*) 10 mg [place] DAILY PRN PRN Reason: CONSTIPATION Last Admin: 11/28/18 09:40 Dose: 10 mg Docusate Sodium (Colace Cap*) 100 mg PO BID SHERMAN Last Admin: 11/28/18 09:39 Dose: 100 mg Flecainide Acetate (Tambocor Tab*) 50 mg PO DAILY [facility] Last Admin: 11/28/18 09:38 Dose: 50 mg Gabapentin (Neurontin Cap(*)) 100 mg PO TID [facility] Last Admin: 11/28/18 09:39 Dose: 100 mg Lactulose (Lactulose*) 30 ml PO DAILY PRN PRN Reason: CONSTIPATION Levothyroxine Sodium (Synthroid Tab*) 100 mcg PO QAM [facility] Last Admin: 11/28/18 09:39 Dose: 100 mcg Magnesium Hydroxide (Milk Of Magnesia Liq*) 30 ml PO BID [facility] Last Admin: 11/28/18 09:12 Dose: Not Given Oxycodone/Acetaminophen (Percocet 5/325 Tab*) 1 tab PO Q4H PRN PRN Reason: PAIN - MODERATE Last Admin: 11/28/18 09:39 Dose: 1 tab Oxycodone/Acetaminophen (Percocet 5/325 Tab*) 2 tab PO Q4H PRN PRN Reason: PAIN - SEVERE Last Admin: 11/26/18 11:48 Dose: 2 tab Patiromer (Veltassa Powder*) 8.4 gm PO DAILY [facility] Last Admin: 11/28/18 09:38 Dose: 8.4 gm Senna (Senokot 8.6 Mg Tab*) 1 tab PO BEDTIME [facility] Last Admin: 11/27/18 23:09 Dose: 1 tab Tramadol HCl (Ultram*) 50 mg PO Q6H PRN PRN Reason: PAIN - MODERATE Last Admin: 11/25/18 19:57 Dose: 50 mg Allergies: ibuprofen Allergy (Verified 11/24/18 06:29) Rash Social History,Family History &Surgical History:Reviewed 12-Point Review of Systemobtained: Negative exceptpertinent positives: Constitutional no fever no weight loss Eyes No blurry vision CV no shortness of breath no chest pain no syncope no edema Resp No shortness of breath no cough no wheezing G.I. no diarrhea no nausea no vomiting no pain no blood per rectum no burning no obstruction symptoms Skin no rash Neurology No seizures or neurologic deficit Endocrine no diabetes Hem/Lymp no bleeding no lymph nodes Immun/Allergy no allergic actions Musculoskeletal no Arthritis no swelling no pain Psych no anxiety no depression no hallucination Objective: 10 Pointmulti systemexam: Negative except pertinent positive Vital Signs: Temp Pulse Resp BP Pulse Ox 98.6 F 77 16 106/54 94 11/28/18 07:33 11/28/18 07:33 11/28/18 09:39 11/28/18 07:33 11/28/18 07:33 Constitutional Alert Oriented x 3 Abdomen SoftAbdomen No Ascites Heart: NSR,No LE Edema, No murmur Lungs: Clear to auscultation, No Crackles Extremities: + edema, No rash Laboratory Reviewed Sodium 138 mmol/L (135-145) 11/28/18 05:39 Potassium 5.4 mmol/L (3.5-5.0) H 11/28/18 05:39 BUN 36 mg/dL (6-24) H 11/28/18 05:39 Creatinine 1.50 mg/dL (0.51-0.95) H 11/28/18 05:39 Calcium 8.4 mg/dL (8.6-10.3) L 11/28/18 05:39 Magnesium 2.0 mg/dL (1.9-2.7) 11/24/18 21:35 Assessment and Plan: *KALYN on CKD 2/2 ATN, sCr better back to baseline. *Hyper-K: likely 2/2 total body potassium Access. She possibly have a renal tubular defect, as K was ok while on Lasix, never low, for which w/u can be done outpatient. K improving, from improvement in kidney function and Patiromer. K 5.4 may hold off Patiromer. May resume Lasix before discharge if BP tolerates. Follow-up with renal clinic as outpatient as recommended Patient made aware of diagnosis and Rx plan. Case discussed with hospitalist Dr. Sanches. All patient's questions were answered
--- NOTE | 2018-11-28 10:16 | PN ---
Progress Note - Progress Note Date of Service: 11/28/18 SOAP: Subjective: []Pt seen at bedside. She feels well and denies CP, SOB, dizziness, nausea. Even with O2 desaturation with activity she has not been symptomatic, never feeling SOB. Objective: []Gen: Appears well, NAD LLE: left hip dressing changed, incision is CDI without erythema. Thigh is soft , DF/PF intact, DP2+, sensation intact to light touch distally Calves supple and nontender Assessment: []POD #4 Left MARI Adrenal insufficiency hyperkalemia O2 desaturation on room air Plan: On SSU WBAT PT/OT with posterior hip precautions Eliquis for DVT ppx VQ scan ordered, cannot have CTA with renal impairment Seen by endo, nephrology. transferred to medicine service Vital Signs Temp 98 F 11/28/18 12:00 Pulse 76 11/28/18 12:00 Resp 16 11/28/18 13:48 BP 107/58 11/28/18 12:00 Pulse Ox 100 11/28/18 12:00 Intake & Output 11/27/18 11/28/18 11/28/18 18:59 06:59 18:59 Intake Total 740 1400 640 Output Total 600 1050 300 Balance 140 350 340 Intake: Oral 740 1400 640 Output: Urine 600 1050 300 Other: Estimated Void Medium # Bowel Movements 0 1 Estimated Stool Amount Large # Voids 1 Laboratory Last Values WBC 14.4 10^3/uL (3.5-10.8) H 11/24/18 14:44 RBC 3.07 10^6 /uL (3.70-4.87) L 11/24/18 14:44 Hgb 8.2 g/dL (12.0-16.0) L 11/28/18 05:39 Hct 25 % (35-47) L 11/28/18 05:39 MCV 89 fL (80-97) 11/24/18 14:44 MCH 29 pg (27-31) 11/24/18 14:44 MCHC 32 g/dL (31-36) 11/24/18 14:44 RDW 16 % (10-15) H 11/24/18 14:44 Plt Count 173 10^3/uL (150-450) 11/28/18 05:39 MPV 7.6 fL (7.4-10.4) 11/28/18 05:39 Neut % (Auto) 93.7 % 11/24/18 14:44 Lymph % (Auto) 3.8 % 11/24/18 14:44 Sterling % (Auto) 1.7 % 11/24/18 14:44 Eos % (Auto) 0.1 % 11/24/18 14:44 Baso % (Auto) 0.7 % 11/24/18 14:44 Absolute Neuts (auto) 13.5 10^3/ul (1.5-7.7) H 11/24/18 14:44 Absolute Lymphs (auto) 0.5 10^3/ul (1.0-4.8) L 11/24/18 14:44 Absolute Monos (auto) 0.2 10^3/ul (0-0.8) 11/24/18 14:44 Absolute Eos (auto) 0.0 10^3/ul (0-0.6) 11/24/18 14:44 Absolute Basos (auto) 0.1 10^3/ul (0-0.2) 11/24/18 14:44 Absolute Nucleated RBC 0.0 10^3/ul 11/24/18 14:44 Nucleated RBC % 0.0 11/24/18 14:44 Sodium 138 mmol/L (135-145) 11/28/18 05:39 Potassium 5.4 mmol/L (3.5-5.0) H 11/28/18 05:39 Chloride 106 mmol/L (101-111) 11/28/18 05:39 Carbon Dioxide 29 mmol/L (22-32) 11/28/18 05:39 Anion Gap 3 mmol/L (2-11) 11/28/18 05:39 BUN 36 mg/dL (6-24) H 11/28/18 05:39 Creatinine 1.50 mg/dL (0.51-0.95) H 11/28/18 05:39 Est GFR ( Amer) 40.1 (>60) 11/28/18 05:39 Est GFR (Non-Af Amer) 33.2 (>60) 11/28/18 05:39 BUN/Creatinine Ratio 24.0 (8-20) H 11/28/18 05:39 Glucose 114 mg/dL (70-100) H 11/28/18 05:39 Lactic Acid 1.4 mmol/L (0.5-2.0) 11/25/18 05:35 Calcium 8.4 mg/dL (8.6-10.3) L 11/28/18 05:39 Magnesium 2.0 mg/dL (1.9-2.7) 11/24/18 21:35 TSH 0.28 mcIU/mL (0.34-5.60) L 11/25/18 12:07 Cortisol 24.47 mcg/dL 11/25/18 12:07 Blood Type O Positive 11/25/18 05:35 Antibody Screen Negative 11/25/18 05:35 Crossmatch See Detail 11/25/18 05:35
[2018-11-28 15:49] LABS: BUN/Creatinine Ratio 26.4 (8-20); Calcium 8.1 mg/dL (8.6-10.3); EGFR African American 43.5 (>60); EGFR Non-African American 35.9 (>60); Potassium 4.7 mmol/L (3.5-5.0)
[2018-11-28] MEDS ORDERED: Hydrocortisone TAB* 10 MG PO SCH (18:00)
[2018-11-28] MEDS: Senna TAB 8.6 mg* TAB PO SCH (21:21)
[2018-11-29] MEDS: oxyCODONE/Acetamin 5/325 MG* TAB PO PRN ×4 (02:08→19:14)
[2018-11-29 08:34] LABS: Hematocrit 26 % (35-47); Hemoglobin 8.7 g/dL (12.0-16.0); Mean Platelet Volume 6.9 fL (7.4-10.4); Platelet Count 206 10^3/uL (150-450)
[2018-11-29 08:50] LABS: BUN/Creatinine Ratio 26.7 (8-20); Calcium 8.2 mg/dL (8.6-10.3); EGFR African American 46.9 (>60); EGFR Non-African American 38.8 (>60)
[2018-11-29] MEDS: Magnesium Hydroxide LIQ* 30 ML UDC PO SCH (08:57)
[2018-11-29] MEDS: Gabapentin CAP(*) 100 MG PO SCH ×2 (08:57→14:32)
[2018-11-29] MEDS: Apixaban* 2.5 MG TAB PO SCH (08:57)
[2018-11-29] MEDS: Docusate CAP* 100 MG PO SCH (08:58)
[2018-11-29] MEDS ORDERED: Furosemide TAB* 20 MG PO SCH (09:00)
[2018-11-29] MEDS ORDERED: Hydrocortisone TAB* 10 MG PO SCH (09:00)
[2018-11-29] MEDS: Patiromer POWDER* 8.4 GM PAK PO SCH (09:01)
[2018-11-29] MEDS: Flecainide TAB* 100 MG PO SCH (09:01)
[2018-11-29] MEDS: Levothyroxine TAB* 100 MCG TAB PO SCH (10:16)
--- NOTE | 2018-11-29 11:31 | PN ---
Progress Note - Progress Note Date of Service: 11/29/18 Note: Nephrology follow-up Note KALYN & Hyper-K By Dr. Gutierrez, [facility] Nephrology 83 yo WF Recent Lt MARI & post-operative hypotension & KALYN on CKD. Peak sCr 43/2.26, IMPROVED 35/1.31. s/p Hyper-K 6.8-11/25. Last K 4.7 & 5.0 since yesterday Off Patiromer Started on Lasix, for fluid overload yesterday Hospital medications: Albuterol Apixaban Bisacodyl Docusate Flecainide Furosemide 20 qd Gabapentin Lactulose Levothyroxine Magnesium Oxycodone Senna Tramadol Objective: 10 Pointmulti systemexam: Negative except pertinent positive Vital Signs: Temp Pulse Resp BP Pulse Ox 98.9 F 68 16 102/53 93 11/29/18 11:11 11/29/18 11:11 11/29/18 11:11 11/29/18 11:11 11/29/18 11:11 Constitutional Alert Oriented x 3 Abdomen SoftAbdomen No Ascites Heart: NSR,No LE Edema, No murmur Lungs: Clear to auscultation, No Crackles Extremities: + edema, No rash Laboratory Reviewed Sodium 139 mmol/L (135-145) 11/29/18 08:26 Potassium 5.0 mmol/L (3.5-5.0) 11/29/18 08:26 BUN 35 mg/dL (6-24) H 11/29/18 08:26 Creatinine 1.31 mg/dL (0.51-0.95) H 11/29/18 08:26 Calcium 8.2 mg/dL (8.6-10.3) L 11/29/18 08:26 Magnesium 2.0 mg/dL (1.9-2.7) 11/24/18 21:35 Assessment and Plan: *KALYN on CKD 2/2 ATN *sCr back to baseline. *Hyper-K: likely 2/2 total body potassium Access. Doesn't need K-Resin, as K is back to normal since she restarted Lasix *BP Ok: Will sign off *FU in outpatient renal clinic after d/c in 1-2 weeks
--- NOTE | 2018-11-29 12:29 | PN ---
Progress Note - Progress Note Date of Service: 11/29/18 SOAP: Subjective: []Pt seen and examined OOB in chair. She feels very well without CP, SOB, dizziness or nausea. Objective: []Gen: Appears well, NAD LLE: left hip dressing CDI, incision is CDI without erythema. Thigh is soft, DF/ PF intact, DP2+, sensation intact to light touch distally Calves supple and nontender Assessment: []POD #5 Left MARI Adrenal insufficiency hyperkalemia Plan: WBAT PT/OT with posterior hip precautions Eliquis for DVT ppx x 30 days post op VQ scan indeterminate. No DVT on dopplar, trial off O2 today. Asymptomatic DC per medicine team when ready, Ortho DC instructions in discharge plan Vital Signs Temp 98.9 F 11/29/18 11:11 Pulse 68 11/29/18 11:11 Resp 16 11/29/18 11:11 BP 102/53 11/29/18 11:11 Pulse Ox 93 11/29/18 11:11 Intake & Output 11/28/18 11/29/18 11/29/18 18:59 06:59 18:59 Intake Total 640 900 Output Total 300 450 Balance 340 450 Intake: Oral 640 900 Output: Urine 300 450 Other: Estimated Void Medium Date of Last Bowel 11/28/2018 Movement # Bowel Movements 1 1 Estimated Stool Amount Large Small # Voids 1 Laboratory Last Values WBC 14.4 10^3/uL (3.5-10.8) H 11/24/18 14:44 RBC 3.07 10^6 /uL (3.70-4.87) L 11/24/18 14:44 Hgb 8.7 g/dL (12.0-16.0) L 11/29/18 08:26 Hct 26 % (35-47) L 11/29/18 08:26 MCV 89 fL (80-97) 11/24/18 14:44 MCH 29 pg (27-31) 11/24/18 14:44 MCHC 32 g/dL (31-36) 11/24/18 14:44 RDW 16 % (10-15) H 11/24/18 14:44 Plt Count 206 10^3/uL (150-450) 11/29/18 08:26 MPV 6.9 fL (7.4-10.4) L 11/29/18 08:26 Neut % (Auto) 93.7 % 11/24/18 14:44 Lymph % (Auto) 3.8 % 11/24/18 14:44 Ray % (Auto) 1.7 % 11/24/18 14:44 Eos % (Auto) 0.1 % 11/24/18 14:44 Baso % (Auto) 0.7 % 11/24/18 14:44 Absolute Neuts (auto) 13.5 10^3/ul (1.5-7.7) H 11/24/18 14:44 Absolute Lymphs (auto) 0.5 10^3/ul (1.0-4.8) L 11/24/18 14:44 Absolute Monos (auto) 0.2 10^3/ul (0-0.8) 11/24/18 14:44 Absolute Eos (auto) 0.0 10^3/ul (0-0.6) 11/24/18 14:44 Absolute Basos (auto) 0.1 10^3/ul (0-0.2) 11/24/18 14:44 Absolute Nucleated RBC 0.0 10^3/ul 11/24/18 14:44 Nucleated RBC % 0.0 11/24/18 14:44 Sodium 139 mmol/L (135-145) 11/29/18 08:26 Potassium 5.0 mmol/L (3.5-5.0) 11/29/18 08:26 Chloride 108 mmol/L (101-111) 11/29/18 08:26 Carbon Dioxide 30 mmol/L (22-32) 11/29/18 08:26 Anion Gap 1 mmol/L (2-11) L 11/29/18 08:26 BUN 35 mg/dL (6-24) H 11/29/18 08:26 Creatinine 1.31 mg/dL (0.51-0.95) H 11/29/18 08:26 Est GFR ( Amer) 46.9 (>60) 11/29/18 08:26 Est GFR (Non-Af Amer) 38.8 (>60) 11/29/18 08:26 BUN/Creatinine Ratio 26.7 (8-20) H 11/29/18 08:26 Glucose 88 mg/dL (70-100) 11/29/18 08:26 Lactic Acid 1.4 mmol/L (0.5-2.0) 11/25/18 05:35 Calcium 8.2 mg/dL (8.6-10.3) L 11/29/18 08:26 Magnesium 2.0 mg/dL (1.9-2.7) 11/24/18 21:35 TSH 0.28 mcIU/mL (0.34-5.60) L 11/25/18 12:07 Cortisol 24.47 mcg/dL 11/25/18 12:07 Blood Type O Positive 11/25/18 05:35 Antibody Screen Negative 11/25/18 05:35 Crossmatch See Detail 11/25/18 05:35
[2018-11-29] MEDS: traMADol TAB* 50 MG PO PRN (14:38)
[2018-11-29 15:54] VITALS: BP 119/65
[2018-11-29 17:24] LABS: BUN/Creatinine Ratio 25.9 (8-20); EGFR African American 45.3 (>60); EGFR Non-African American 37.5 (>60)
--- NOTE | 2018-11-30 01:13 | DS ---
CC: Dr. Amanda Herrera; Dr. Janeth Gutierrez; Dr. Luis Alfredo Lantigua; Dr. Kimberlyn Lincoln. * DISCHARGE SUMMARY: DATE OF ADMISSION: 11/24/18 DATE OF DISCHARGE: 11/29/18 PRIMARY CARE PROVIDER: Dr. Amanda Herrera. MY ATTENDING WHILE IN THE HOSPITAL: Dr. Arely Weaver.* (DICTATED BY VESNA FARLEY) CONSULTING HEAD PASTRY CHEF: Dr. Janeth Gutierrez. CONSULTING ANIMAL CARE GIVER: Dr. Luis Alfredo Lantigua. ORTHOPEDIST: Dr. Kimberlyn Lincoln. PRIMARY DISCHARGE DIAGNOSES: 1. [id number] kidney injury. 2. Hypertension. 3. Hyperkalemia. 4. Postoperative hypotension. 5. Left total hip replacement. 6. Concern for adrenal insufficiency. SECONDARY DISCHARGE DIAGNOSES: 1. Abdominal aortic aneurysm repair. 2. History of aortic stenosis and aortic valve replacement. 3. Left shoulder surgery. 4. Cataract repair. 5. Tonsillectomy. 6. Appendectomy. 7. Stent placement in August 2018. STUDIES DONE WHILE IN THE HOSPITAL: Pelvis x-ray from 11/24/18 read as hip replacement with satisfactory position. Abdomen and bladder ultrasound from 11/28/18 read as simple and minimally complicated renal cyst. No hydronephrosis or nephrolithiasis. Bilateral ureteral jets were noted. No postvoid residual. Lung scan VQ read as intermediate probability of pulmonary embolism. Findings discussed with Dr. Myles at 2:12 p.m. on 11/28/18. Venous Doppler study from 11/28/18 read as no right lower extremity deep vein thrombosis, no left lower extremity deep vein thrombosis. MEDICATIONS AT DISCHARGE: 1. Levothyroxine 100 mcg p.o. daily. 2. Furosemide 20 mg p.o. daily. 3. Aspirin 81 mg p.o. daily. 4. Neurontin 100 mg p.o. t.i.d. 5. Flecainide 50 mg p.o. daily. 6. Vitamin D 2000 units p.o. daily. 7. Docusate 100 mg p.o. daily as needed. 8. Apixaban 2.5 mg p.o. b.i.d. x50 more doses. 9. Percocet 1 to 2 tablets p.o. q.4 hours as needed for pain. New medications at discharge: 1. Eliquis. 2. Oxycodone. Medications discontinued at discharge: None. HOSPITAL COURSE: This is a brief summary of the patient's presentation. For more details, please see the history and physical from Dr. Kimberlyn Lincoln on 11/20, the consultation by Dr. Mitch Mak on 11/24/18, and a consultation from Ayesha Farah NP, on 11/24/18. In brief, the patient is an 83-year-old female who presented for an elective left total hip replacement on 11/20/18. Postoperatively, the patient was persistently hypotensive and symptomatic with this. The patient with no signs of cardiac ischemia. The patient was started on vasopressors initially and Yung-Synephrine and then Levophed. The patient had a random cortisol which was drawn and was 5.49. The patient had a cosyntropin stim test, which was within normal limits. The patient was started on hydrocortisone and was able to be weaned off of her vasopressin agents. The patient was given significant amounts of fluids during this time. The patient was initially hypoxic. The patient never needed to be intubated. The patient was initially anemic and received 3 L of packed red blood cells. Her hemoglobin hit a low of 6.9 and went up to 8.9 and stayed approximately the same throughout the rest of her hospitalization. The patient has a baseline creatinine of approximately 1.4 and after her surgery, it was found to be up to approximately 2.3. In the setting of vasopressor use and hypotension, it trended back down to approximately her baseline throughout her hospitalization. The patient initially was hyperkalemic with initial potassium of 5.7, hitting a high of 6.8. The patient responded to patiromer and fluids. The patient was on Lasix at home, which was held while in the hospital. The patient has never been known to be hypokalemic before, raising the possibility of adrenal insufficiency. However, given her normal stim test, this was believed to be unlikely by Dr. Luis Alfredo Lantigua. She was tapered off of her hydrocortisone on 11/28, and blood pressure stayed within normal range. The patient was restarted on her Lasix on 11/29/18 and her potassium did not increase after her patiromer that she had been receiving daily was discontinued. The patient, on the day of discharge, had only minor pain in her hip. No other symptoms and was stable and amenable for discharge to home. PHYSICAL EXAMINATION ON THE DAY OF DISCHARGE: General: The patient is an 83- year- old female who appears stated age and sitting comfortably in the bed, in no acute distress. Vital Signs: At the time of discharge, temperature 97.2, pulse rate 60, respiratory rate 180, oxygen saturation 94% on room air, blood pressure 119/65. HEENT: Head: Normocephalic, atraumatic. Sclerae anicteric. No conjunctival injection. Nasal mucosa moist. Oral mucosa moist. No pharyngeal erythema, discharge or exudate. Neck: Supple, nontender. No lymphadenopathy. No carotid bruits auscultated. No JVD. Cardiac: Regular rate and rhythm. No clicks, murmurs, gallops or rubs. Pulses are 2+ in the bilateral dorsalis pedis, posterior tibialis, and radial areas. Respiratory: Clear to auscultation bilaterally. No wheezes, rales, or rhonchi. Good air exchange bilaterally. Abdomen: Soft, nontender, nondistended. Bowel sounds present and normoactive in all 4 quadrants. No hepatosplenomegaly. No abdominal bruits auscultated. No hepatojugular reflux. Genitourinary: No suprapubic or CVA tenderness. Skin: Clean, dry, and intact. No rash. Left hip incision covered in bulky dressing, not visualized. Neuro: Cranial nerves II through XII intact. No focal deficits. Alert and oriented x3. Psychiatric: Pleasant and cooperative. DISCHARGE PLAN BY PROBLEM: 1. Postoperative hypotension, resolved: The patient's postoperative hypotension was likely a combination of acute blood loss, anesthesia, and possibly adrenal insufficiency, which is unlikely in the setting of normal cosyntropin stimulation test. The patient is now normotensive on her home Lasix. The patient is on no other blood pressure medications. The patient is off of hydrocortisone. The patient should return to the hospital for alarming symptoms such as passing out, dizziness on standing, chest pain or severe shortness of breath. 2. Acute kidney injury, hyperkalemia: The patient had acute kidney injury postoperatively, which was likely the cause of her hyperkalemia in conjunction with total body potassium excess per Dr. Gutierrez. The patient should follow up with Dr. Gutierrez as outpatient for possible renal tubular defect testing. The patient's potassium is 5.0 on the day of discharge and she will have this repeated at her followup with her primary care provider within 1 week. Continue patient's furosemide. 3. Total left hip arthroplasty: The patient should follow up with Orthopedics in 1 to 2 weeks for removal of her jolene and routine postoperative care. The patient should return to the hospital for significant worsening pain in her hip , redness, swelling or discharge from the hip site. The patient should follow hip instructions and wound care instructions as provided. Per Orthopedics, the patient will be on Eliquis for DVT prophylaxis. 4. History of aortic valve stenosis, status post replacement: The patient should followup with her primary industrial safety and health manager for routine postoperative care. 5. Hypothyroidism: Continue patient's levothyroxine. 6. History of hypertension: Continue patient's Lasix. 7. History of DVT: Continue patient's apixaban. She had no lower extremity DVTs in the hospital. The patient is not hypoxic anymore, not tachycardic, and not hypotensive, and there is low suspicion for PE at this time despite intermediate resting V/Q scan. DISPOSITION: Home. CONDITION: Stable. TIME SPENT: Approximately 75 minutes were spent on the discharge of this patient, 30 of which was spent [id number] with the patient obtaining history and physical and discussing treatment plan. VESNA FARLEY [id number]/[facility] #: [id number]
== END 2018-11-29 19:55 | disposition home or self-care (01) | DRG 469 ==
LOC: OR 05:52 → ICU 16:05 → SSU 11-26 13:49
PROVIDERS: ADMIT Orthopaedic Surgery Adult Reconstructive Orthopaedic Surgery; ATTEND Internal Medicine
PROC: 0SRB04A Replacement of Left Hip Joint with Ceramic on Polyethylene Synthetic Substitute, Uncemented, Open Approach (ICD-10-PCS; principal; 2018-11-24 08:00)
PROC: 30233N1 Transfusion of Nonautologous Red Blood Cells into Peripheral Vein, Percutaneous Approach (ICD-10-PCS; 2018-11-25)
DX: M16.12 Unilateral primary osteoarthritis, left hip (principal); J96.01 Acute respiratory failure with hypoxia; I26.99 Other pulmonary embolism without acute cor pulmonale; N17.0 Acute kidney failure with tubular necrosis; E27.40 Unspecified adrenocortical insufficiency; E87.1 Hypo-osmolality and hyponatremia; D62 Acute posthemorrhagic anemia; Z68.1 Body mass index [BMI] 19.9 or less, adult; E03.9 Hypothyroidism, unspecified; E87.5 Hyperkalemia; I95.81 Postprocedural hypotension; J44.9 Chronic obstructive pulmonary disease, unspecified; I48.91 Unspecified atrial fibrillation; N18.9 Chronic kidney disease, unspecified; I12.9 Hypertensive chronic kidney disease with stage 1 through stage 4 chronic kidney disease, or unspecified chronic kidney disease; F17.210 Nicotine dependence, cigarettes, uncomplicated; I44.0 Atrioventricular block, first degree; N28.1 Cyst of kidney, acquired; M85.862 Other specified disorders of bone density and structure, left lower leg; Z95.2 Presence of prosthetic heart valve; Z86.718 Personal history of other venous thrombosis and embolism; Z79.82 Long term (current) use of aspirin; Z79.899 Other long term (current) drug therapy; Z88.6 Allergy status to analgesic agent; Z83.3 Family history of diabetes mellitus; Z82.49 Family history of ischemic heart disease and other diseases of the circulatory system
CPT/HCPCS: 36415; 71046; 76770; 78582; 80048; 82533; 83605; 83735; 84443; 85014; 85018; 85025; 85049; 86850; 86900; 86901; 86922; 87641; 88304; 88311; 93005; 93970; A9270-GY; A9540; A9558; C1713; C1776; G8978-GP-CK; G8979-GP-CH; G8987-GO-CK; G8988-GO-CI; J0610; J0690; J0834; J1100; J1720; J2250; J2270; J2405; J2704; J2795; J3010; P9040